=== PATIENT | female | born 1995 | race American Indian/Alaskan Native ===

== ENCOUNTER 2016-08-17 07:43 | Day surgery (SDC) | payer OTHER ==
--- NOTE | 2016-08-17 08:56 | Anesthesia Day of Surgery ---
Anesthesia Day of Surgery - Day of Surgery Patient Examined: Yes Patient H&P Reviewed: Yes Patient is NPO: Yes
--- NOTE | 2016-08-17 08:56 | Anesthesia Consultation ---
Anesthesia Consult and Med Hx Date of service: 08/24/16 - Airway Anesthetic Teeth Evaluation: Good ROM Head & Neck: Adequate Mental/Hyoid Distance: Adequate Mallampati Class: Class II Intubation Access Assessment: Good - Pulmonary Exam CTA: Yes - Cardiac Exam Cardiac Exam: RRR - Pre-Operative Health Status ASA Pre-Surgery Classification: ASA2 Proposed Anesthetic Plan: General - Pulmonary Hx Smoking: Yes (CIGARS, 1 PD X 4 YRS) Hx Sleep Apnea: No - Central Nervous System Hx Psychiatric Problems: No - Other Systems Hx Cancer: No
[2016-08-17] MEDS ORDERED: VERSED IV NR (09:00)
[2016-08-17] MEDS ORDERED: NORCO 5/325 PO PRN (09:00)
[2016-08-17] MEDS ORDERED: PEPCID PO NR (09:00)
[2016-08-17] MEDS ORDERED: ZOFRAN IV PRN (09:00)
[2016-08-17] MEDS ORDERED: LACTATED RINGERS 1,000 ML IV SCH (09:00)
[2016-08-17] MEDS ORDERED: DILAUDID IV PRN (09:30)
[2016-08-17] MEDS ORDERED: DIPRIVAN 10 MG/ML IV ONE (09:59)
[2016-08-17] MEDS ORDERED: SUBLIMAZE ONE (09:59)
[2016-08-17] MEDS ORDERED: XYLOCAINE MPF 2% ONE (09:59)
[2016-08-17] MEDS ORDERED: XYLOCAINE 1% 20 mL INFILTRATI ONE (11:28)
[2016-08-17] MEDS ORDERED: MARCAINE 0.25% INFILTRATI ONE ×2 (11:28→11:36)
[2016-08-17] MEDS ORDERED: WATER FOR IRRIG STERILE IR ONE (11:28)
[2016-08-17] MEDS ORDERED: ZOFRAN ONE (11:31)
[2016-08-17] MEDS ORDERED: XYLOCAINE 1% 20 mL ONE (11:37)
[2016-08-17] MEDS ORDERED: ANCEF/STERILE WATER 2 GM/20 ML IV NR (12:18)
--- NOTE | 2016-08-17 12:32 | Short Stay Summary ---
Short Stay Documentation Date of service: 08/17/16 - History H&P: obtained from office - Allergies and Medications Current Medications: Allergies No Known Allergies Allergy (Verified 08/17/16 09:08) Home Medications Medication Instructions Recorded Confirmed Last Taken Type HYDROcodone/APAP 5-325 [[place] 1 each PO Q6HR PRN #30 tablet 08/17/16 Unknown Rx 5/325] Active Medications Acetaminophen/Hydrocodone Bitart ([place] 5/325) 2 each PO ONCE PRN PRN Reason: Pain, Moderate (4-6) Stop: 08/17/16 18:00 Cefazolin Sodium (Ancef/Sterile Water 2 Gm/20 Ml) 2 gm IV PREOP NR Stop: 08/17/16 23:59 Famotidine (Pepcid) 20 mg PO PREOP NR Stop: 08/17/16 19:00 Last Admin: 08/17/16 09:23 Dose: 20 mg Hydromorphone HCl (Dilaudid) 0.5 mg IV Q10MIN PRN PRN Reason: Pain , Severe (7-10) Stop: 08/17/16 14:00 Lactated Ringer's (Lactated Ringers) 1,000 mls @ 125 mls/hr IV DIRECT DARRYL Last Admin: 08/17/16 09:20 Dose: 125 mls/hr Midazolam HCl (Versed) 2 mg IV PREOP NR Stop: 08/17/16 23:59 Last Admin: 08/17/16 09:30 Dose: 2 mg Ondansetron HCl (Zofran) 4 mg IV ONCE PRN PRN Reason: Nausea And Vomiting Stop: 08/17/16 18:00 - Brief post op/procedure progress note Date of procedure: 08/17/16 Pre-op diagnosis: 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 Post-op diagnosis: same Procedure: Left breast excisional biopsy of fibroadenoma of the upper outer quadrant Anesthesia: GETA Findings: Known fibroadenoma of the upper outer quadrant at the 1:00 position 4 cm from the nipple Surgeon: SAURABH GIVENS Estimated blood loss: minimal Pathology: list (left fibroadenoma) Specimen disposition: to lab Condition: stable - Disposition Condition at discharge: Good Disposition: DISCHARGED TO HOME OR SELFCARE Short Stay Discharge Plan Activity: other (no heavy lifting) Diet: regular Wound: other (may shower in 24 hours; no baths, pools or lakes; do not rub or scrub incision) Follow up with: PRIMARY MD RACHELL [Primary Care Provider] - 7 Days SAURABH GIVENS MD [Staff Physician] - 7 Days Prescriptions: HYDROcodone/APAP 5-325 [[place] 5/325] 1 each PO Q6HR PRN #30 tablet PRN Reason: Pain
--- NOTE | 2016-08-17 12:37 | Operative Report ---
Operative Report Operative Report: Date of procedure: 08/17/2016 Pre-operative diagnosis: Left breast fibroadenoma at the upper outer quadrant Post-operative diagnosis: Same Procedure name(s): Left breast excisional biopsy of known fibroadenoma of the upper outer quadrant Surgeon: Sienna Quintanilla M.D. Anesthesia: Gen. Findings: Palpable left fibroadenoma at the 1 o'clock position 4 cm from nipple with excisional biopsy performed Consultations: None Estimated blood loss: Minimal Disposition: PACU in good condition Indications for operative procedure: This is a 21-year-old premenopausal Su lady with known fibroadenoma of the upper outer quadrant at the 1 o'clock position 4 cm from nipple previously biopsied with noted increasing size and recommendations for excisional biopsy. Patient wished to proceed with the above procedure. Procedure in detail: The patient was taken to the operating room and was laid supine. Gen. anesthesia was administered without any complications. Left breast was prepped and draped in the normal sterile operative fashion. Fibroadenoma was palpable at the 1 o'clock position 4 cm from the nipple. A periareolar skin incision was made with a 15 blade knife with dissection taken down to the subcutaneous tissues. Fibroadeonoma was identified and was appropriately dissected free with the aid of the Bovie cautery. Specimen was sent to pathology. Hemostasis was obtained with the Bovie cautery. The subcutaneous tissues were approximated and closed using interrupted 3-0 Vicryl and skin closed using a running 4-0Monocryl with skin affix. She was awakened from anesthesia without any complications and transported to PACU in good condition.
[2016-08-17 13:52] VITALS: BP 127/91
--- NOTE | 2016-08-17 15:54 | Post Anesthesia Evaluation ---
- Post Anesthesia Evaluation Patient Participated: Yes Airway Patent: Yes Stable Respiratory Function: Yes Nausea/Vomiting: No Temp > 96.8F: Yes Pain Manageable: Yes Adequeate Hydration: Yes Anesthesia Complications: No Block Receding Appropriately: Not Applicable Patient on Ventilator: No
== END 2016-08-17 14:25 | disposition home or self-care (01) ==
LOC: OR 07:43
PROVIDERS: ATTEND Surgery
DX: D24.2 Benign neoplasm of left breast (principal); F17.290 Nicotine dependence, other tobacco product, uncomplicated; Z98.890 Other specified postprocedural states
CPT/HCPCS: 19120; 88305; J2250; J2405; J2704; J3010; J7120; 88307